=== PATIENT | female | born 1965 ===

== ENCOUNTER 2020-11-28 09:30 | Day surgery (SDC) | payer OTHER ==
[~2020-11-28 09:30] MED LIST: PEPCID AC10 MG PO; TOPROL XL50 M1 PO; ZOLOFT100 MG PO
== END 2020-11-28 15:20 | disposition home or self-care (01) ==
LOC: CIR.AMB 09:30
PROVIDERS: ATTEND Obstetrics & Gynecology Gynecology
DX: N32.81 Overactive bladder (principal); Z20.822 Contact with and (suspected) exposure to COVID-19
CPT/HCPCS: 64581; C1778